=== PATIENT | male | born 1965 | race Caucasian/White ===

== ENCOUNTER 2017-04-24 15:32 | Emergency (ER) | payer OTHER ==
[~2017-04-24] VITALS: Ht 182.9 cm; Wt 80.3 kg
[2017-04-24] MEDS ORDERED: CEFTRIAXONE 250 MG IM ONE (16:00)
[2017-04-24] MEDS ORDERED: AZITHROMYCIN 500 MG TABLET PO ONE (16:00)
[2017-04-24] MEDS ORDERED: LORazepam 1MG TABLET PO ONE (16:00)
[2017-04-24 16:01] LABS: HEMOGLOBIN 16.5 g/dL (13.7-18.0); WHITE BLOOD COUNT 6.4 x10^3/uL (3.4-10)
[2017-04-24] MEDS ORDERED: AZITHROMYCIN 500 MG TABLET ONE (16:01)
[2017-04-24] MEDS ORDERED: CEFTRIAXONE 250 MG ONE (16:01)
[2017-04-24] MEDS ORDERED: LORazepam 1MG TABLET ONE (16:02)
[2017-04-24 16:13] LABS: BLOOD UREA NITROGEN 6 mg/dL (7-18)
[2017-04-24] MEDS ORDERED: LISINOPRIL 20 MG TABLET ONE (16:24)
[2017-04-24] MEDS ORDERED: LISINOPRIL 20 MG TABLET PO ONE (16:30)
[2017-04-24] MEDS ORDERED: METOPROLOL TARTRATE 25 MG TABLET PO ONE (16:30)
[2017-04-24 16:37] LABS: IS PT STATUS REG ER OR PRE ER? YES
[2017-04-24] MEDS ORDERED: POTASSIUM CHLORIDE 20 MEQ PACKET PO ONE (17:00)
[2017-04-24 17:24] VITALS: BP 184/107
[2017-04-24] MEDS ORDERED: POTASSIUM CHLORIDE 20 MEQ TAB.ER.PRT ONE (17:27)
== END 2017-04-24 17:59 | disposition home or self-care (01) ==
LOC: ED 17:30
DX: Z20.2 Contact with and (suspected) exposure to infections with a predominantly sexual mode of transmission (principal); R30.0 Dysuria; I10 Essential (primary) hypertension
CPT/HCPCS: 36415; 71010; 80048; 82040; 84484; 85025; 87491; 87591; 93005; 96372; 99285; J0696

== ENCOUNTER 2017-05-09 15:48 | Emergency (ER) | payer OTHER ==
[~2017-05-09] VITALS: Ht 182.9 cm; Wt 78.9 kg
[2017-05-09 15:57] VITALS: BP 154/129
[2017-05-09] MEDS ORDERED: BLOOD PRESSURE PO (16:19)
== END 2017-05-09 16:34 | disposition home or self-care (01) ==
LOC: ED 16:28
DX: A54.9 Gonococcal infection, unspecified (principal); I10 Essential (primary) hypertension
CPT/HCPCS: 99281

== ENCOUNTER 2017-12-31 14:30 | Emergency (ER) | payer BC, OTHER ==
[~2017-12-31] VITALS: Ht 182.9 cm; Wt 74.3 kg
[~2017-12-31 14:30] MED LIST: BLOOD PRESSURE PO
[2017-12-31 14:31] VITALS: BP 139/81
[2017-12-31] MEDS ORDERED: KETOROLAC 30 MG/1 ML IM ONE (15:30)
[2017-12-31] MEDS ORDERED: KETOROLAC 30 MG/1 ML ONE (15:30)
== END 2017-12-31 16:13 | disposition home or self-care (01) ==
LOC: ED 16:00
DX: S39.012A Strain of muscle, fascia and tendon of lower back, initial encounter (principal); S29.012A Strain of muscle and tendon of back wall of thorax, initial encounter; I10 Essential (primary) hypertension; W18.39XA Other fall on same level, initial encounter; Y93.89 Activity, other specified; Y99.8 Other external cause status; Y92.89 Other specified places as the place of occurrence of the external cause
CPT/HCPCS: 72072; 72110; 96372; 99284; J1885